=== PATIENT | female | born 1990 | race Caucasian/White ===

== ENCOUNTER 2023-07-25 08:44 | Day surgery (SDC) | payer BC ==
[2023-07-25] MEDS ORDERED: Acetaminophen 500 MG TAB ONE (09:05)
[2023-07-25] MEDS ORDERED: Ferumoxytol (NON ERSD) 510 MG in Sodium Chloride 0.9% 250 ML 150 ML IVPB SCH (09:15)
[2023-07-25] MEDS ORDERED: Iron Sucrose Complex 500 MG in Sodium Chloride 0.9% 250 ML 250 ML IVPB SCH (09:30)
[2023-07-25] MEDS ORDERED: Acetaminophen 500 MG TAB PO SCH (09:30)
== END 2023-07-25 14:15 | disposition home or self-care (01) ==
LOC: CSHSDC 08:44
PROVIDERS: ATTEND Student in an Organized Health Care Education/Training Program
DX: O99.019 Anemia complicating pregnancy, unspecified trimester (principal); D64.9 Anemia, unspecified; Z3A.00 Weeks of gestation of pregnancy not specified
CPT/HCPCS: 96365; 96374; 96376; J1756; J7050

== ENCOUNTER 2023-08-15 18:00 | Inpatient (IN) | payer BC ==
[2023-08-15 20:46] VITALS: BMI 33.1
[2023-08-15] MEDS ORDERED: Acetaminophen 500 MG TAB PO PRN (21:47)
[2023-08-15] MEDS ORDERED: Ibuprofen 800 MG TAB PO PRN (21:47)
[2023-08-15] MEDS ORDERED: hydrALAZINE 20 MG/ML VIAL SLOW IVP PRN (21:47)
[2023-08-15] MEDS ORDERED: Promethazine HCl 25 MG/ML VIAL IM PRN (21:47)
[2023-08-15] MEDS ORDERED: Ondansetron PF 4 MG/2 ML Vial IVP PRN (21:47)
[2023-08-15] MEDS ORDERED: Lidocaine 1% (PF) 30 ML VIAL SC PRN (21:47)
[2023-08-15] MEDS ORDERED: Lactated Ringer's 1,000 ML IV SCH (22:00)
[2023-08-15] MEDS ORDERED: Oxytocin 30 units/NS 500 ML 500 ML IV SCH (22:00)
[2023-08-15] MEDS: Misoprostol 100 MCG TAB VAG SCH (22:28)
[2023-08-15 22:33] LABS: Hematocrit 31.7 % (34.9-44.5); Hemoglobin 10.7 g/dL (12.0-15.5); Mean Corpuscular HGB CONC 33.8 g/dL (32.0-36.0); Mean Corpuscular Hemoglobin 27.7 pg (27.0-33.0); Mean Corpuscular Volume 82.1 fl (81.6-98.3); Mean Platelet Volume 11.5 fl (7.4-10.4); Platelet Count 190 10x3/uL (150-450); RBC Distribution Width 14.4 % (11.5-14.5); Red Blood Cell (RBC) Count 3.86 10x6/uL (3.90-5.03); White Blood Cell (WBC) Count 8.7 10x3/uL (3.5-10.5)
[2023-08-15 23:24] LABS: HBSAg Index 0.18 S/CO (0-0.99); HIV (1/2) Antibody/Antigen Non-Reactive (NonReactive); HIV 1/2 INDEX 0.12 S/CO (<1.00); Hep B Surf Ag - L&D Non-Reactive S/CO (NonReactive); Syphilis Antibody Nonreactive (Nonreactive); Syphilis Antibody Index 0.05 S/CO (<1.00 Non-Reactive)
[2023-08-16] MEDS: Misoprostol 100 MCG TAB VAG SCH (01:36)
[2023-08-16] MEDS: fentaNYL 50 mcg/mL 1 mL Vial SLOW IVP PRN ×2 (11:05→16:46)
[2023-08-16] MEDS ORDERED: Oxytocin 30 units/NS 500 ML 500 ML IV SCH (11:45)
[2023-08-16] MEDS ORDERED: fentaNYL 50 mcg/mL 1 mL Vial SLOW IVP PRN (16:20)
[2023-08-16] MEDS ORDERED: fentaNYL/Ropivacaine Epidural 100 ML ONE (23:42)
[2023-08-17 01:54] LABS: #Monocytes 0.8 10x3/uL (0.0-1.1); #Neutrophils 12.6 10x3/uL (1.5-8.4); %Basophils 0.1 % (0.0-2.0); %Eosinophils 0.2 % (0.0-6.0); %Lymphocytes 8.7 % (18.0-47.0); %Monocytes 5.4 % (0.0-10.0); %Neutrophils 85.1 % (40.0-75.0); Hematocrit 36.2 % (34.9-44.5); Hemoglobin 11.9 g/dL (12.0-15.5); Mean Corpuscular HGB CONC 32.9 g/dL (32.0-36.0); Mean Corpuscular Hemoglobin 27.4 pg (27.0-33.0); Mean Corpuscular Volume 83.4 fl (81.6-98.3); Mean Platelet Volume 11.5 fl (7.4-10.4); Platelet Count 197 10x3/uL (150-450); RBC Distribution Width 14.8 % (11.5-14.5); Red Blood Cell (RBC) Count 4.34 10x6/uL (3.90-5.03); White Blood Cell (WBC) Count 14.9 10x3/uL (3.5-10.5)
[2023-08-17] MEDS ORDERED: ePHEDrine Sulfate 50 MG/10 ML VIAL SLOW IVP PRN (01:59)
[2023-08-17] MEDS ORDERED: diphenhydrAMINE 50 MG/ML VIAL IVP PRN (01:59)
[2023-08-17] MEDS ORDERED: Lactated Ringer's 500 ML IV PRN (01:59)
[2023-08-17] MEDS ORDERED: Ondansetron PF 4 MG/2 ML Vial IVP PRN ×2 (01:59→07:47)
[2023-08-17] MEDS ORDERED: Moisturizing Cream (Eucerin) 113 GM JAR TOP PRN (01:59)
[2023-08-17] MEDS ORDERED: Acetaminophen 325 MG TAB PO PRN (01:59)
[2023-08-17] MEDS ORDERED: Promethazine HCl 25 MG/ML VIAL IM PRN (01:59)
[2023-08-17] MEDS ORDERED: Naloxone HCl 0.4 mg/ml Vial IVP PRN ×2 (01:59)
[2023-08-17] MEDS ORDERED: fentaNYL 2 mcg/Ropivacaine 0.2% Epidural 100 ML CADD EPIDURAL SCH (02:00)
[2023-08-17] MEDS ORDERED: Communication Order-Pharmacy FS SCH (02:00)
[2023-08-17 02:01] LABS: ALT (SGPT) 40 U/L (8-55); AST (SGOT) 36 U/L (5-34); Albumin 3.2 g/dL (3.5-5.0); Alkaline Phosphatase 143 U/L (40-110); Anion Gap 15 mmol/L (10-20); BUN (Urea Nitrogen) 11 mg/dL (7.0-18.7); Bilirubin, Total 0.5 mg/dL (0.2-1.2); Calc. Creatinine Clearance 143 mL/min (70-130); Calcium 9.1 mg/dL (7.8-10.44); Carbon Dioxide 20 mmol/L (22-29); Chloride 103 mmol/L (98-107); Estimated GFR 102; Globulin 3.4 g/dL (2.4-3.5); Glucose 92 mg/dL (70-105); Protein, Total 6.6 g/dL (6.0-8.3); Sodium 134 mmol/L (136-145)
[2023-08-17 04:37] LABS: Creatinine, Urine 69.76 mg/dL (47-110); Protein, Urine Random Quant Less than 10 mg/dL (1-14)
[2023-08-17] MEDS ORDERED: Lidocaine 1% (PF) 30 ML VIAL ONE (05:09)
[2023-08-17] MEDS ORDERED: Boostrix 0.5 ML (Tdap) VIAL (>/=7 yrs of age) IM ONE (07:47)
[2023-08-17] MEDS ORDERED: hydrALAZINE 20 MG/ML VIAL SLOW IVP PRN (07:47)
[2023-08-17] MEDS ORDERED: Methylergonovine 0.2 MG/ML VIAL IM PRN (07:47)
[2023-08-17] MEDS ORDERED: diphenhydrAMINE 25 MG CAP PO PRN (07:47)
[2023-08-17] MEDS ORDERED: Oxytocin 30 units/NS 500 ML 500 ML IV SCH (07:47)
[2023-08-17] MEDS ORDERED: Lanolin Ointment 7 GM TUBE TOP PRN (07:47)
[2023-08-17] MEDS ORDERED: Preparation H Ointment 28 GM TUBE PR PRN (07:47)
[2023-08-17] MEDS ORDERED: Misoprostol 200 MCG TAB VAG PRN (07:47)
[2023-08-17] MEDS ORDERED: Milk Of Magnesia 30 ML UDCUP PO PRN (07:47)
[2023-08-17] MEDS ORDERED: Bisacodyl 10 MG SUPP PR PRN (07:47)
[2023-08-17] MEDS ORDERED: Benzocaine-Menthol 82.5 ML CAN TOP PRN (07:47)
[2023-08-17] MEDS: Ibuprofen 800 MG TAB PO SCH ×2 (13:28→21:40)
[2023-08-17] MEDS: Ferrous Sulfate 325 MG TAB PO SCH ×2 (18:02→18:03)
[2023-08-17] MEDS: Docusate 100 MG CAP PO SCH ×2 (18:03→21:40)
[2023-08-17] MEDS: Polyethylene Glycol 3350 17 GM Packet PO SCH (18:05)
[2023-08-17] MEDS: Prenatal Vitamin 1 TAB PO SCH (18:05)
[2023-08-17] MEDS: Misoprostol 100 MCG TAB VAG SCH ×5 (18:07→18:11)
[2023-08-17] MEDS ORDERED: Ferrous Sulfate 325 MG TAB PO SCH (21:00)
[2023-08-18] MEDS ORDERED: HYDROcodone/Acetaminophen 5/325 mg Tablet PO PRN (02:00)
[2023-08-18] MEDS: Ibuprofen 800 MG TAB PO SCH ×3 (05:20→21:52)
[2023-08-18] MEDS ORDERED: Bupivacaine 0.25% HCL 30 ML VIAL ONE (08:00)
[2023-08-18] MEDS: Docusate 100 MG CAP PO SCH ×2 (09:50→21:52)
[2023-08-18] MEDS: Polyethylene Glycol 3350 17 GM Packet PO SCH (09:50)
[2023-08-18] MEDS ORDERED: Ferrous Sulfate 325 MG TAB PO SCH (17:00)
[2023-08-18] MEDS: Prenatal Vitamin 1 TAB PO SCH (22:09)
[2023-08-19] MEDS: Ibuprofen 800 MG TAB PO SCH (05:37)
[2023-08-19] MEDS: Polyethylene Glycol 3350 17 GM Packet PO SCH (07:26)
[2023-08-19] MEDS: Prenatal Vitamin 1 TAB PO SCH (07:26)
[2023-08-19] MEDS: Docusate 100 MG CAP PO SCH (07:26)
[2023-08-19 08:03] VITALS: BP 121/73; TEMP 97.8
== END 2023-08-19 10:45 | disposition home or self-care (01) | DRG 768 ==
LOC: CSHLD 19:58 → CSHPP 08-17 10:15
PROVIDERS: ADMIT Obstetrics & Gynecology; ATTEND Obstetrics & Gynecology
PROC: 0U7C7ZZ Dilation of Cervix, Via Natural or Artificial Opening (ICD-10-PCS; 2023-08-15)
PROC: 10E0XZZ Delivery of Products of Conception, External Approach (ICD-10-PCS; principal; 2023-08-17)
PROC: 0DQR0ZZ Repair Anal Sphincter, Open Approach (ICD-10-PCS; 2023-08-17)
PROC: 0W8NXZZ Division of Female Perineum, External Approach (ICD-10-PCS; 2023-08-17)
DX: O36.5930 Maternal care for other known or suspected poor fetal growth, third trimester, not applicable or unspecified (principal); Z37.0 Single live birth; O70.21 Third degree perineal laceration during delivery, IIIa; Z3A.39 39 weeks gestation of pregnancy; D50.9 Iron deficiency anemia, unspecified; O13.4 Gestational [pregnancy-induced] hypertension without significant proteinuria, complicating childbirth; E66.9 Obesity, unspecified; O99.214 Obesity complicating childbirth; O99.02 Anemia complicating childbirth
CPT/HCPCS: 36415; 51702; 80053; 82570; 84156; 85025; 85027; 86780; 86850; 86900; 86901; 87340; 87389; J2001; J2590; J3010; S0020